=== PATIENT | male | born 1990 | race Caucasian/White ===

== ENCOUNTER 2016-12-10 00:45 | Emergency (ER) | payer BC ==
[~2016-12-10] VITALS: Ht 177.8 cm; Wt 83.0 kg
[2016-12-10 00:53] VITALS: BP 129/79
[2016-12-10] MEDS ORDERED: FLUORESCEIN OPTH STRIP 1 MG OP ONE (01:10)
[2016-12-10] MEDS ORDERED: TETRACAINE HCL/PF 0.5% OPTH 4 ML BTL OP ONE (01:10)
[2016-12-10] MEDS ORDERED: TETRACAINE HCL/PF 0.5% OPTH 4 ML BTL ONE (01:14)
[2016-12-10] MEDS ORDERED: FLUORESCEIN OPTH STRIP 1 MG ONE (01:14)
[2016-12-10] MEDS ORDERED: HYDROcodone/APAP 5/325 MG 1 TAB TAB PO ONE (01:20)
[2016-12-10 01:40] VITALS: BP 122/72
== END 2016-12-10 01:04 | disposition home or self-care (01) ==
LOC: MED 00:45
DX: S05.01XA Injury of conjunctiva and corneal abrasion without foreign body, right eye, initial encounter (principal); W50.0XXA Accidental hit or strike by another person, initial encounter; Y93.89 Activity, other specified; Y92.89 Other specified places as the place of occurrence of the external cause; Y99.8 Other external cause status
CPT/HCPCS: 90715; 99283